=== PATIENT | male | born 1970 | race Caucasian/White ===

== ENCOUNTER → 2022-06-02 | Outpatient (CLI) | payer BC ==
--- NOTE | 2022-06-02 11:53 | US ---
EXAMINATION TYPE: US kidneys/renal and bladder DATE OF EXAM: 06/02/2022 COMPARISON: NONE at this location CLINICAL HISTORY: N28.1 RT RENAL CYST. Apparent right renal cyst, but no priors EXAM MEASUREMENTS: Right Kidney: 12.0 x 5.5 x 4.6 cm Left Kidney: 11.7 x 5.5 x 5.5 cm Right Kidney: No hydronephrosis or masses seen Left Kidney: No hydronephrosis or masses seen Bladder: wnl Bilateral Jets seen: Yes IMPRESSION: 1. No suspicious acute ultrasound abnormality bilateral kidneys. No large cysts identified.
== END | disposition home or self-care (01) ==
LOC: RADUSWWP 10:43
PROVIDERS: ATTEND Psychiatry & Neurology Neurology
DX: N28.1 Cyst of kidney, acquired (principal)
CPT/HCPCS: 76770

== ENCOUNTER 2022-10-23 08:54 | Emergency (ER) | payer BC ==
[2022-10-23 09:01] VITALS: RESP 16; TEMP 98.5
--- NOTE | 2022-10-23 09:25 | XR ---
EXAMINATION TYPE: XR Hip RT and AP Pelvis DATE OF EXAM: 10/23/2022 COMPARISON: NONE HISTORY: Pain after falling injury one day earlier. TECHNIQUE: A single AP view of the pelvis is obtained. Two views of the right hip are obtained. FINDINGS: There is no acute fracture/dislocation evident in the pelvis. [id number] axial joint space loss in both hips is present. Pubic symphysis is intact. Sacroiliac joints show slight asymme tric narrowing on the left. The overlying soft tissue appears unremarkable. Two views of right hip show no acute fracture or dislocation. Metallic hardware through healed fractu re right proximal femur is noted. The overlying soft tissue is unremarkable. IMPRESSION: There is no acute fracture or dislocation in the pelvis or right hip.
[2022-10-23] MEDS ORDERED: ORPHENADRINE 30 MG/ML 2 ML VIAL IVP STA (09:31)
[2022-10-23] MEDS ORDERED: HYDROmorphone 0.5 MG/0.5 ML SYRINGE IVP STA ×2 (09:31→11:33)
--- NOTE | 2022-10-23 09:43 | ED ---
Fall HPI - General Chief Complaint: Fall Stated Complaint: Fall Time Seen by Provider: 10/23/22 08:54 Source: patient, EMS, RN notes reviewed Mode of arrival: EMS Limitations: physical limitation - History of Present Illness Initial Comments: This a 52-year-old male presents emergency Department via EMS after chief complaint of a fall, right hip pain. Patient states that he got up quickly also balance and fell onto his right hip. Patient states he had surgery years ago because he had a fracture of his proximal femoral region. Patient states this feels exactly the same. Denies any head injury no loss conscious. Denies any chest pain denies shortness of breath, abdominal pain. Patient denies any paresthesias denies any bowel, bladder incontinence or retention of back pain. - Related Data Previous Rx's Medication Instructions Recorded HYDROcodone/APAP 7.5-325MG [Jewett 1 tab PO Q6HR PRN 3 Days #12 tab 10/23/22 7.5-325] Allergies Allergy/AdvReac Type Severity Reaction Status Date / Time No Known Allergies Allergy Verified 10/23/22 09:01 Review of Systems ROS Statement: Those systems with pertinent positive or pertinent negative responses have been documented in the HPI. ROS Other: All systems not noted in ROS Statement are negative. Past Medical History Additional Past Medical History / Comment(s): cluster headaches, back problems History of Any Multi-Drug Resistant Organisms: None Reported Additional Past Surgical History / Comment(s): Left knee replacement, right forearm internal fixation, right hip internal fixation. Past Psychological History: No Psychological Hx Reported Smoking Status: Current every day smoker Past Alcohol Use History: Daily Past Drug Use History: None Reported General Exam Limitations: no limitations General appearance: alert, in no apparent distress Head exam: Present: atraumatic, normocephalic, normal inspection Respiratory exam: Present: normal lung sounds bilaterally. Absent: respiratory distress, wheezes, rales, rhonchi, stridor Cardiovascular Exam: Present: regular rate, normal rhythm, normal heart sounds. Absent: systolic murmur, diastolic murmur, rubs, gallop, clicks Extremities exam: Present: other (Tenderness the right hip, neurovascular intact patient is in a flexed position unable to fully straighten secondary to pain) Course Vital Signs 10/23/22 08:58 Temperature 98.5 F Pulse Rate 99 Respiratory 16 Rate Blood Pressure 134/84 O2 Sat by Pulse 98 Oximetry Medical Decision Making - Medical Decision Making 52-year-old male presented for fall, hip pain. Patient has evidence of greater trochanteric fracture as interpreted by me and radiology on CT this is not evident on x-ray. I did discuss case with Dr. Lundberg recommends to touching, crutches, no adduction follow-up in one week for repeat x-rays, pain control. Disposition Clinical Impression: Fall, Fracture of greater trochanter of right femur Disposition: HOME SELF-CARE Condition: Stable Instructions (If sedation given, give patient instructions): Leg Fracture (ED) Additional Instructions: Please use crutches and only remain to touching weightbearing follow up in 1 week for repeat x-rays. Please return to the Emergency Department if symptoms worsen or any other concerns. Prescriptions: HYDROcodone/APAP 7.5-325MG [Jewett 7.5-325] 1 tab PO Q6HR PRN 3 Days #12 tab PRN Reason: Pain Is patient prescribed a controlled substance at d/c from ED?: Yes When asked, does pt state using other controlled substances?: Yes If prescribed controlled substance>3 days was MAPS reviewed?: Prescribed <3 Days If opioid is for acute pain is fill amount 7 days or less?: Yes If Rx opioid, was Start Talking consent form obtained?: Yes Referrals: Adonay Mcleod MD [Primary Care Provider] - 1-2 days Dane Lundberg MD [Medical Doctor] - 1-2 days Time of Disposition: 11:39
--- NOTE | 2022-10-23 10:47 | CT ---
EXAMINATION TYPE: CT hip RT wo con DATE OF EXAM: 10/23/2022 COMPARISON: Plain films same date HISTORY: Fall, pain in RT hip, previous injury/sx. CT DLP: 472.4 mGycm Automated exposure control for dose reduction was used. Contrast: None Technique: Axial images 3 mm thick sections. Constructed images in the coronal and sagittal planes. FINDINGS: Right femoral head articulates with the acetabulum. There is a right hip and. There is avulsion of th e posterior greater trochanter correlates with the location of the patient's pain. No additional frac tures are evident. Joint space is narrowed. Prostate contains calcification. Muscular signal appears unremarkable. IMPRESSION: 1. POSTERIOR GREATER TROCHANTER FRACTURE.
[2022-10-23] MEDS ORDERED: KETOROLAC 15 MG/ML 1 ML VIAL IVP STA (11:33)
[2022-10-23 12:10] VITALS: BP 136/86; PULSE 698
== END 2022-10-23 12:11 | disposition home or self-care (01) ==
LOC: EC 08:54
DX: S72.111A Displaced fracture of greater trochanter of right femur, initial encounter for closed fracture (principal); F17.200 Nicotine dependence, unspecified, uncomplicated; W18.30XA Fall on same level, unspecified, initial encounter
CPT/HCPCS: 99284; 73502; 73700; 96374; 96375 ×2; 96376; J2360; J1885; J1170